=== PATIENT | female | born 1940 | race Caucasian/White ===

== ENCOUNTER 2017-01-01 11:44 | Inpatient (IN) | payer MEDICARE ==
[~2017-01-01] VITALS: Ht 154.9 cm; Wt 64.1 kg
[~2017-01-01 11:44] MED LIST: ALPR0.25 PO; AMLO10CA PO; ATOR20TA15 PO; GABA800T PO; IBUP-988 PO; LEVEMIR SQ; LISI40TA PO; METO25TA3 PO; PANT40TA3 PO; POTA1TAB4 PO; TRIA37.5 PO
[2017-01-02 06:29] VITALS: BP 145/67; PULSE 59; RESP 16; TEMP 98.7; O2SAT 97
[2017-01-02] MEDS ORDERED: METOPROLOL TARTRATE 25 MG TAB PO PRN (06:30)
[2017-01-02] MEDS ORDERED: SODIUM CHLOR 0.9% 1000 ML INJ 1,000 ML IV SCH (06:30)
[2017-01-02] MEDS ORDERED: POVIDONE IODINE 5% (ANTISEPSIS KIT) 4 APPLICATIONS EACH NARE PRN (06:30)
[2017-01-02] MEDS ORDERED: INSULIN HUMAN REGULAR 1,000 UNITS/10 ML VIAL SQ PRN (06:30)
[2017-01-02] MEDS ORDERED: CHLORHEXIDINE GLUCONATE 2 % 1 PACK (2 CLOTHS) TOPICAL PRN (06:30)
[2017-01-02] MEDS ORDERED: ceFAZolin 2 GM PREMIX 50 ML IV SCH (06:30)
[2017-01-02] MEDS ORDERED: SODIUM CHLORID 0.9% 500 ML IV PRN (06:30)
[2017-01-02] MEDS ORDERED: THROMBIN (TOPICAL) 5,000 UNIT VIAL ONE (07:55)
[2017-01-02] MEDS ORDERED: GELFOAM SIZE 100 ONE (07:55)
[2017-01-02] MEDS ORDERED: MIDAZOLAM HCL 2 MG/2 ML VIAL ONE (08:07)
[2017-01-02] MEDS ORDERED: ARTIFICIAL TEARS OPTH OINT 3.5 APPLIC/3.5 GM TUBO ONE (08:07)
[2017-01-02] MEDS ORDERED: FAMOTIDINE 20 MG/2 ML VIAL ONE (08:07)
[2017-01-02] MEDS ORDERED: fentaNYL CITRATE 250 MCG/5 ML AMP ONE (08:07)
[2017-01-02] MEDS ORDERED: ACETAMINOPHEN 1000 MG/100 ML VIAL IV ONE (08:44)
[2017-01-02] MEDS: BUPIVACAINE/EPINEPHRINE 0.5% PF 30 ML VIAL ONE ×2 (09:41→11:20)
--- NOTE | 2017-01-02 09:54 | EKG ---
Date Performed: 01/02/2017 Time Performed: 06:46:57 PTAGE: 76 years EKG: SINUS BRADYCARDIA LOW QRS VOLTAGE IN EXTREMITY LEADS NONSPECIFIC T-WAVE ABNORMALITY BORDERL INE ECG PREVIOUS TRACING : 09/14/2007 03.43 Compared to the previous tracing Twave abnormalities are le ss prominent DOCTOR: Obed Rose Interpretating Date/Time 01/02/2017 09:53:38
[2017-01-02] MEDS: VANCOMYCIN HCL 1000 MG VIAL ONE ×2 (10:32→11:23)
[2017-01-02] MEDS ORDERED: NEOSTIGMINE 3 MG/3 ML SYR IV ONE (12:00)
[2017-01-02] MEDS ORDERED: ONDANSETRON HCL 4 MG/2 ML VIAL IV PUSH ONE (12:00)
[2017-01-02] MEDS ORDERED: ePHEDrine/NS 25 MG/5 ML SYR IV ONE (12:00)
[2017-01-02] MEDS ORDERED: PROPOFOL 200 MG/20 ML AMP IV ONE (12:00)
[2017-01-02] MEDS ORDERED: NORMOSOL R INJ 2,000 ML IV ONE (12:00)
[2017-01-02] MEDS ORDERED: LACTATED RINGER'S 1000 ML INJ 1,000 ML IV ONE (12:00)
[2017-01-02] MEDS ORDERED: PHENYLEPH/NS 1000 MCG/10 ML SYR IV ONE (12:00)
[2017-01-02] MEDS: NS + KCL 20 MEQ INJ 1,000 ML IV SCH ×2 (12:11→20:00)
[2017-01-02] MEDS ORDERED: oxyCODONE/ACETAMINOPHEN 5 MG/325 MG TAB PO PRN (12:15)
[2017-01-02] MEDS ORDERED: GLUCAGON 1 MG/ML VIAL OTHER PRN (12:15)
[2017-01-02] MEDS ORDERED: diphenhydrAMINE HCL 50 MG/ML VIAL IV PRN (12:15)
[2017-01-02] MEDS ORDERED: MENTHOL LOZENGE BUCCAL PRN (12:15)
[2017-01-02] MEDS ORDERED: CYCLOBENZAPRINE HCL 10 MG TAB PO PRN (12:15)
[2017-01-02] MEDS ORDERED: ALUMINUM/MAGNESIUM/SIMETH 30 ML CUP PO PRN (12:15)
[2017-01-02] MEDS ORDERED: POTASSIUM CHLOR 20 MEQ PREMIX 100 ML IV PRN (12:15)
[2017-01-02] MEDS ORDERED: NALOXONE HCL 0.4 MG/ML AMP IV PRN (12:15)
[2017-01-02] MEDS ORDERED: DO NOT ADM ANY ANTICOAGULANT DRUGS PRN (12:15)
[2017-01-02] MEDS ORDERED: ACETAMINOPHEN 325 MG TAB PO PRN (12:15)
[2017-01-02] MEDS ORDERED: ALPRAZolam 0.25 MG TAB PO PRN (12:15)
[2017-01-02] MEDS ORDERED: MORPHINE SULFATE 30 MG/30 ML PCA IV SCH (12:15)
[2017-01-02] MEDS ORDERED: MAGNESIUM HYDROXIDE SUSP 30 ML CUP PO PRN (12:15)
[2017-01-02] MEDS ORDERED: PROCHLORPERAZINE INJ 10 MG/2 ML VIAL IV PUSH PRN (12:15)
[2017-01-02] MEDS ORDERED: CALCIUM GLUCONATE INJ 1 GM in SODIUM CHLORIDE 0.9% INJ 100 ML IV PRN (12:15)
[2017-01-02] MEDS ORDERED: RESP: ALBUTEROL 2.5 MG/3 ML NEB (PRN) NEB (12:15)
[2017-01-02] MEDS ORDERED: MAGNESIUM SULFATE INJ 2 GM in SODIUM CHLORIDE 0.9% INJ 100 ML IV PRN (12:15)
[2017-01-02] MEDS ORDERED: ONDANSETRON HCL 4 MG/2 ML VIAL IV PRN (12:15)
[2017-01-02] MEDS ORDERED: DEXTROSE 50% IN WATER 50 ML VIAL(D50) IV PUSH PRN (12:15)
[2017-01-02] MEDS ORDERED: ZOLPIDEM TARTRATE 5 MG TAB PO PRN (12:15)
[2017-01-02] MEDS ORDERED: SODIUM CHLORIDE 0.9% FLUSH 10 ML FLUSH IV FLUSH PRN (12:15)
--- NOTE | 2017-01-02 12:27 | PD.OP ---
MD Gerber Rodriguez MD Surya Rao, MD Operative Report Date of Surgery: Jan 02, 2017 Preoperative Diagnosis: Intractable low back pain with left L5 radiculopathy; left L4-5 facet arthropathy with synovial cyst; L5-S1 severe degenerative disc disease with facet arthropathy and foraminal stenosis Postoperative Diagnosis: Same Procedure: L5-S1 transforaminal interbody fusion; L4-5 laminectomy with medial facetectomy and synovial cyst resection and L5-S1 decompressive laminectomy/foraminotomy; L5 -S1 pedicle screw fixation; L5-S1 interbody cage placement; microsurgical technique Anesthesia: Gen. endotracheal by Shraddha Hodges Surgeon: Paolo Ugalde M.D. Medical Certification Specialist(s): April Parsons Operation and Findings: Following initiation of general endotracheal anesthesia, the patient had a Starr catheter placed along with sequential compression devices. A gram of vancomycin was administered intravenously and she was turned in a prone position on a Russel frame, on a Delfino table, and all pressure points adequately padded. The lumbosacral region was then prepped with Chloraprep and sterilely draped with Ioban along the usual sterile draping. A midline skin incision was then made extending from the L4-S1 levels after infiltrating the skin with 0.5% Marcaine with epinephrine solution extending down through the fascia. The muscle fibers were split using avascular fatty plane and detached from the underlying left side lamina, facets, transverse process and a self- retaining retractor used for exposure. Intraoperative fluoroscopy was also used for level of confirmation along with microscope magnification for further dissection. There was significant facet and ligamentum flavum hypertrophy noted at the L4-5 and L5-S1 levels. Left L4-5 medial facet and the lamina resected with a drill bit and there was a thickened lateral recess stenosis from hypertrophied ligamentum flavum and facet as well as a synovial cyst which mostly had the solid yellowish material and into the dura which was peeled off. Subsequently at the L5-S1 level a left hemilaminotomy and facetectomy undertaken with a drill bit and Kerrisons. There was significant disc height collapse along with disc protrusion also leading to the foraminal stenosis. Epidural hemostasis was achieved with bipolar cautery and Gelfoam with thrombin. Subsequently entered into the disc space at the L5-S1 level with a # 15 blade and scar were used for discectomy. I noted the couple millimeter area on the lateral aspect of thecal sac on the S1 level of spinal fluid leakage. This was primarily repaired with a 5-0 Prolene running lock stitch in a watertight fashion and reinforced with DuraSeal. No subsequent CSF leak was noted with Valsalva maneuvers. I then placed PEEK cage packed with local autograft bone and more local autograft bone was packed adjacent to the cage in interspace for added interbody fusion. With placement of the cage, I was able to distract the interspace and opened up the foramen further bilaterally. Subsequently in order to facilitate the fusion and provide stabilization, pedicle screw fixation was undertaken using [place] spine screws on entry point at the left L5 and S1 levels at the junction of the transverse process and facet for the L5 level and sacral ala for the S1 level. Subsequently using AP and lateral fluoroscopy tap and screw placement. The screws were then connected with a shilpi and locked in place with caps. The construct appeared very secure at this point. The area was then copiously irrigated with Vancomycin solution and powder. The retractors were removed and the bipolar cautery used for hemostasis. The muscle fascia was then approximated using 2-0 Vicryl interrupted stitches and then 3-0 Vicryl subcuticular stitches also placed in interrupted fashion. The final skin closure was completed with Mastisol and Steri-Strips. A sterile dressing was then applied. The patient then turned in supine position, extubated and taken to recovery room. There were no intraoperative complications. All sponge and needle counts were correct at the end of procedure. Estimated blood loss about 100 ml. Paolo Ugalde MD Jan 02, 2017 12:27
[2017-01-02] MEDS: GABAPENTIN 400 MG CAP PO SCH ×2 (13:00→16:20)
[2017-01-02 13:36] LABS: AUTOMATED NEUTROPHIL # 6.6 TH/MM3 (1.8-7.7); BASOPHIL % 0.5 % (0.0-2.0); EOSINOPHIL % 0.5 % (0.0-4.0); HEMATOCRIT 31.4 % (35.0-46.0); HEMO FLAGS DIFF FINAL; LYMPH % 7.5 % (9.0-44.0); LYMPHOCYTE # 0.6 TH/MM3 (1.0-4.8); MEAN CELL VOLUME 94.3 FL (80.0-100.0); MEAN CORPUSCULAR HEMOGLOBIN 31.5 PG (27.0-34.0); MEAN CORPUSCULAR HGB CONC 33.4 % (32.0-36.0); MONO % 2.5 % (0.0-8.0); PLATELET COUNT 157 TH/MM3 (150-450); RED BLOOD COUNT 3.33 MIL/MM3 (4.00-5.30); RED CELL DISTRIBUTION WIDTH 13.2 % (11.6-17.2); WHITE BLOOD COUNT 7.4 TH/MM3 (4.0-11.0)
[2017-01-02] MEDS: PCA - TOTAL MG MORPHINE DELIVERED PER SHIFT SCH ×2 (14:00→21:13)
[2017-01-02 14:24] LABS: BICARBONATE 25.3 MEQ/L (21.0-32.0); MAGNESIUM 2.2 MG/DL (1.5-2.5); POTASSIUM 3.8 MEQ/L (3.5-5.1)
[2017-01-02] MEDS ORDERED: AMLO10TA2 PO (14:26)
[2017-01-02 14:45] VITALS: BP 111/48; PULSE 63; RESP 20; TEMP 95.7; O2SAT 98
--- NOTE | 2017-01-02 14:52 | PD.CONS ---
HPI Service [facility] Hospitalists Consult Requested By Dr. Paolo Ugalde Reason for Consult Medical Management Primary Care Physician Dr. Mariano Carrillo Diagnoses: History of Present Illness Mrs. Tyson is a pleasant 76 y/o WF with HTN, hyperlipidemia, CAD, GERD, and intractable low back pain with left L5 radiculopathy/left L4-5 facet arthropathy /L5-S1 severe degenerative disc disease. [place] [facility] [place] L5 -S1 transforaminal interbody fusion/laminectomy with medial facetectomy and L5- S1 decompressive laminectomy/foraminotomy with Dr. Ugalde. [facility] Hospitalist team was consulted to help manage the pts chronic medical issues. Pt is seen post- operatively in the PACU and is without any specific complaints. 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 She reports that her pain is controlled at the time of our examination. Denies any chest pain, SOB, nausea /vomiting, dizziness, lightheadedness or abd pain. BP is low normal in PACU. Medications have been reviewed in outpt records as well. Review of Systems Constitutional: DENIES: Fever, Chills Respiratory: DENIES: Cough, Shortness of breath Cardiovascular: DENIES: Chest pain Gastrointestinal: DENIES: Abdominal pain, Nausea, Vomiting Musculoskeletal: COMPLAINS OF: Back pain Integumentary: DENIES: Rash Neurologic: DENIES: Headache Psychiatric: DENIES: Confusion Past Family Social History Past Medical History CAD HTN Carotid artery stenosis CKD, stage 4 Diabetes mellitus Hyperlipidemia GERD Hypokalemia IBS Lumbar spondylosis/radiculopathy Migraine Headaches Past Surgical History Cholecystectomy Surgical uterine suspension PTCA with MATEO placement to proximal circumflex in 2010 Reported Medications -Advil (Ibuprofen) 200 Mg Tab 200 Mg PO ONCE -Gabapentin 800 Mg PO TID -Levemir Inj 15 Units SQ DAILY -Triamterene-Hydrochlorothiazide 37.5-25 Mg PO DAILY -Pantoprazole 40 Mg PO DAILY -Metoprolol Tartrate 25 Mg PO DAILY -Lisinopril 40 Mg PO DAILY -Atorvastatin 20 Mg PO HS -Amlodipine 10 Mg PO DAILY --Alprazolam 0.25 Mg PO Q8H PRN (?1mg po HS PRN) --K-Tab 20 Meq PO BID Allergies: Coded Allergies: Demerol (Verified Allergy, Severe, vomiting, 01/02/17) Lortab (Verified Allergy, Severe, severe nausea VOMITING, 01/02/17) Clonidine (Verified Allergy, Unknown, 01/02/17) Darvocet-N 100 (Verified Adverse Reaction, Intermediate, vomiting, 01/02/17) Family History Noncontributory Social History Denies any tobacco, alcohol or illicit drug use Physical Exam Vital Signs Vital Signs Date Time Temp Pulse Resp B/P Pulse Ox O2 Delivery O2 Flow Rate FiO2 01/02/17 13:30 56 16 117/54 99 Nasal Cannula 2 01/02/17 13:15 55 16 118/50 98 Nasal Cannula 2 01/02/17 13:00 57 16 113/53 98 Nasal Cannula 2 01/02/17 12:45 56 16 120/49 99 Nasal Cannula 2 01/02/17 12:30 56 16 122/55 99 Nasal Cannula 2 01/02/17 12:15 61 16 125/57 98 Nasal Cannula 2 01/02/17 12:00 66 16 123/63 99 Nasal Cannula 2 01/02/17 11:51 97.4 75 16 128/46 99 Nasal Cannula 3 01/02/17 06:29 98.7 59 16 145/67 97 Physical Exam GENERAL: This is a well-nourished, well-developed patient, in no apparent distress. HEENT: Atraumatic. Normocephalic. No temporal or scalp tenderness. No scleral icterus. Airway patent. NECK: Trachea midline, supple, nontender. CARDIO: Regular. RESP: CTA bilaterally. No wheezes, rales, or rhonchi. ABD: +BS, soft, non-tender, nondistended. EXT: Extremities without clubbing, cyanosis, or edema. SCDs in place NEURO: Awake and alert. Motor and sensory grossly within normal limits. Normal speech. Laboratory Laboratory Tests Test 01/02/17 01/02/17 06:40 13:15 Blood Type A POSITIVE Antibody Screen NEGATIVE Blood Bank Comment White Blood Count 7.4 Red Blood Count 3.33 Hemoglobin 10.5 Hematocrit 31.4 Mean Corpuscular Volume 94.3 Mean Corpuscular Hemoglobin 31.5 Mean Corpuscular Hemoglobin 33.4 Concent Red Cell Distribution Width 13.2 Platelet Count 157 Mean Platelet Volume 8.5 Neutrophils (%) (Auto) 89.0 Lymphocytes (%) (Auto) 7.5 Monocytes (%) (Auto) 2.5 Eosinophils (%) (Auto) 0.5 Basophils (%) (Auto) 0.5 Neutrophils # (Auto) 6.6 Lymphocytes # (Auto) 0.6 Monocytes # (Auto) 0.2 Eosinophils # (Auto) 0.0 Basophils # (Auto) 0.0 CBC Comment DIFF FINAL Differential Comment Result Diagram: 01/02/17 1315 Assessment and Plan Problem List: (1) Lumbar degenerative disc disease Status: Chronic Plan: - Pt has a hx of intractable low back pain with left L5 radiculopathy/left L4-5 facet arthropathy/L5-S1 severe degenerative disc disease. - [place] [facility] [place] for L5-S1 transforaminal interbody fusion/ laminectomy with medial facetectomy and L5-S1 decompressive laminectomy/foraminotomy with Dr. Ugalde. - Post-op pain control per Neurosurgery - PT daily - IS - Constipation precautions - DVT prophylaxis (2) Lumbar foraminal stenosis Status: Chronic Plan: - See above (3) Lumbar disc prolapse with compression radiculopathy Status: Chronic Plan: - See above. (4) HTN (hypertension) Status: Chronic Plan: - Pt home BP regimen includes: -Triamterene-Hydrochlorothiazide 37.5-25 Mg PO DAILY -Metoprolol Tartrate 25 Mg PO DAILY -Lisinopril 40 Mg PO DAILY -Amlodipine 10 Mg PO DAILY - Home meds have been resumed but with parameters to hold for systolic BP less than 120 on Triamterene-HCTZ, Lisinopril, and Amlodipine and hold Metoprolol for systolic less than 110. - Monitor (5) Hyperlipidemia Status: Chronic Plan: - Home med continued (6) GERD (gastroesophageal reflux disease) Status: Chronic (7) CAD (coronary artery disease) Status: Chronic Assessment and Plan Patient examined. Assessment and plan formulated with Nette Baca PA-C. Teresa agree with the above. L5/S1 lami/fusion for radiculopathy left leg. htn/dm...cont bp meds and dm meds as tolerated. seen in PACU and doing great. Nette Baca Jan 02, 2017 14:52 Chinedu Gold MD Jan 02, 2017 20:32
[2017-01-02] MEDS: INSULIN NovoLIN REGULAR SUPPLEMENTAL SCALE SQ SCH ×2 (16:20→21:13)
[2017-01-02 20:00] VITALS: BP 115/60; PULSE 74; RESP 18; TEMP 96.7; O2SAT 98
[2017-01-02] MEDS: DOCUSATE SODIUM 100 MG CAP PO SCH (20:00)
[2017-01-02] MEDS: ATORVASTATIN 20 MG TAB PO SCH (20:00)
[2017-01-02] MEDS: SODIUM CHLORIDE 0.9% FLUSH 10 ML FLUSH IV FLUSH SCH (20:01)
[2017-01-03] VITALS (8 sets, daily range): BP systolic 115–175; BP diastolic 56–74; PULSE 62–80; RESP 16–20; TEMP 96.5–99.1; O2SAT 92–97
[2017-01-03] MEDS: PCA - TOTAL MG MORPHINE DELIVERED PER SHIFT SCH ×3 (05:33→22:00)
[2017-01-03 05:38] LABS: MAGNESIUM 2.1 MG/DL (1.5-2.5); POTASSIUM 4.6 MEQ/L (3.5-5.1)
[2017-01-03] MEDS: INSULIN NovoLIN REGULAR SUPPLEMENTAL SCALE SQ SCH ×4 (06:11→20:33)
[2017-01-03] MEDS: POLYETHYLENE GLYCOL 17 GM PKG PO SCH (07:37)
[2017-01-03] MEDS: POTASSIUM CHLORIDE 20 MEQ CONTROLLED RELEASE TAB PO SCH (07:38)
[2017-01-03] MEDS: TRIAMTERENE/HCTZ 37.5 MG/25 MG TAB PO SCH (07:38)
[2017-01-03] MEDS: METOPROLOL TARTRATE 25 MG TAB PO SCH (07:38)
[2017-01-03] MEDS: LISINOPRIL 20 MG TAB PO SCH (07:39)
[2017-01-03] MEDS: DOCUSATE SODIUM 100 MG CAP PO SCH ×2 (07:39→20:32)
[2017-01-03] MEDS: PANTOPRAZOLE SOD 40 MG DELAYED RELEASE TAB PO SCH (07:39)
[2017-01-03] MEDS: GABAPENTIN 400 MG CAP PO SCH (07:40)
[2017-01-03] MEDS: SODIUM CHLORIDE 0.9% FLUSH 10 ML FLUSH IV FLUSH SCH ×2 (07:47→20:32)
--- NOTE | 2017-01-03 08:51 | HHI.NSPN ---
(Du Sylvester) History Chief Complaint: Incisional back pain. (Du Sylvester) Interval History 01/03/17: Pt underwent a L4/L5 laminectomy with medial facetectomy with synovial cyst resection with L5/S1 decompressive laminectomy with interbody fusion and pedicle screw fixation on 01/02/17. She complains of incisional back pain. No radiculopathy or paresthesias in LEs. She is ambulating short distances. 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 (Du Sylvester) Review of Systems General: Negative for: fever, chills, insomnia Respiratory: Negative for: shortness of breath, cough, sputum Cardiovascular: Negative for: chest pain Gastrointestinal: Negative for: nausea, vomitting, diarrhea, constipation ( Du Sylvester) Exam Results Vital Signs Date Time Temp Pulse Resp B/P Pulse Ox O2 Delivery O2 Flow Rate FiO2 01/03/17 07:49 Room Air 01/03/17 05:33 16 01/03/17 04:00 97.8 73 117/59 95 01/03/17 02:03 21 01/02/17 19:09 2.00 Intake and Output 01/02/17 01/02/17 01/03/17 08:00 16:00 00:00 Intake Total 1600 ml 954 ml Output Total 880 ml 300 ml Balance 720 ml 654 ml (Du Sylvester) Physical Examination Resp: CTA bilaterally Heart: NSR no murmurs Abd: Soft positive bs Skin: No cyanosis or erythema Muscle: Moves LEs with good strength Neuro: Pt awake and alert. Follows commands well. speech clear and appropriate. (Du Sylvester) Lab, Micro, Other Results Laboratory Tests Test 01/02/17 01/03/17 13:15 04:08 White Blood Count 7.4 TH/MM3 Red Blood Count 3.33 MIL/MM3 Hemoglobin 10.5 GM/DL Hematocrit 31.4 % Mean Corpuscular Volume 94.3 FL Mean Corpuscular Hemoglobin 31.5 PG Mean Corpuscular Hemoglobin 33.4 % Concent Red Cell Distribution Width 13.2 % Platelet Count 157 TH/MM3 Mean Platelet Volume 8.5 FL Neutrophils (%) (Auto) 89.0 % Lymphocytes (%) (Auto) 7.5 % Monocytes (%) (Auto) 2.5 % Eosinophils (%) (Auto) 0.5 % Basophils (%) (Auto) 0.5 % Neutrophils # (Auto) 6.6 TH/MM3 Lymphocytes # (Auto) 0.6 TH/MM3 Monocytes # (Auto) 0.2 TH/MM3 Eosinophils # (Auto) 0.0 TH/MM3 Basophils # (Auto) 0.0 TH/MM3 CBC Comment DIFF FINAL Differential Comment Sodium Level 141 MEQ/L 142 MEQ/L Potassium Level 3.8 MEQ/L 4.6 MEQ/L Chloride Level 107 MEQ/L 109 MEQ/L Carbon Dioxide Level 25.3 MEQ/L 25.0 MEQ/L Anion Gap 9 MEQ/L 8 MEQ/L Blood Urea Nitrogen 27 MG/DL 24 MG/DL Creatinine 1.34 MG/DL 1.34 MG/DL Estimat Glomerular Filtration 39 ML/MIN 39 ML/MIN Rate Random Glucose 150 MG/DL 155 MG/DL Calcium Level 8.7 MG/DL 8.6 MG/DL Magnesium Level 2.2 MG/DL 2.1 MG/DL 01/02/17 01/02/17 01/03/17 15:00 23:00 07:00 Intake Total 1600 ml 954 ml 873 ml Output Total 880 ml 300 ml 600 ml Balance 720 ml 654 ml 273 ml Intake Oral 240 ml 240 ml IV Total 714 ml 633 ml Other 1600 ml Output Urine Total 800 ml 300 ml 600 ml Estimated Blood Loss 80 ml # Bowel Movements 0 0 (Du Sylvester) Medical Decision Making Impression and Plan A: 76 y/o FM s/p L4/L5 laminectomy with medial facetectomy with synovial cyst resection with L5/S1 decompression with interbody fusion with cage and pedicle screw fixation. P: Continue with PT Continue with pain control. D/C SOAPING MACHINE BACK TENDER tomorrow am. Rehab efforts (Du Sylvester) Attending Statement The exam, history, and the medical decision-making described in the above note were completed with the assistance of the mid-level provider. I reviewed and agree with the findings presented. I attest that I had a [id number] encounter with the patient on the same day, and personally performed and documented my assessment and findings in the medical record. (Paolo Ugalde MD) Du Sylvester Jan 03, 2017 08:51 Paolo Ugalde MD Jan 03, 2017 13:38
[2017-01-03] MEDS ORDERED: LISINOPRIL 20 MG TAB PO SCH (09:00)
[2017-01-03] MEDS ORDERED: NON-FORMULARY DRUG (Amlodipine-Benazepril 1 CAP) PO SCH (09:00)
[2017-01-03] MEDS ORDERED: PERC10TA27 PO (09:19)
[2017-01-03] MEDS: NS + KCL 20 MEQ INJ 1,000 ML IV SCH (12:33)
[2017-01-03] MEDS: oxyCODONE/ACETAMINOPHEN 5 MG/325 MG TAB PO PRN ×2 (12:39→16:51)
--- NOTE | 2017-01-03 13:17 | RADRPT ---
EXAM DATE/TIME: 01/02/2017 09:02 [place] COMPARISON: No previous studies available for comparison. INDICATIONS : L5-S1 lumbar fusion. Lower back pain. MEDICAL HISTORY : None. SURGICAL HISTORY : None. ENCOUNTER: Initial ACUITY: 1 day PAIN SCORE: Non-responsive. LOCATION: lower back FINDINGS: Patient is status-post transpedicular fusion from the left at L5-S1. Alignment is anatomic. CONCLUSION: Anatomic alignment Yovanny Cardona MD FACR on January 03, 2017 at 13:09 Board Certified Radiologist. This report was verified electronically.
[2017-01-03] MEDS: GABAPENTIN 300 MG CAP PO SCH (20:32)
[2017-01-03] MEDS: ATORVASTATIN 20 MG TAB PO SCH (20:32)
[2017-01-04] VITALS: BP 115/57; PULSE 71; RESP 16; TEMP 97.4; O2SAT 94
[2017-01-04 04:00] VITALS: BP 141/65; PULSE 73; RESP 20; TEMP 98.2; O2SAT 93
[2017-01-04] MEDS: PCA - TOTAL MG MORPHINE DELIVERED PER SHIFT SCH ×3 (06:00→22:00)
[2017-01-04] MEDS: INSULIN NovoLIN REGULAR SUPPLEMENTAL SCALE SQ SCH ×4 (07:00→21:00)
[2017-01-04 07:48] VITALS: BP 174/77; PULSE 91; RESP 17; TEMP 98.9; O2SAT 96
[2017-01-04] MEDS: SODIUM CHLORIDE 0.9% FLUSH 10 ML FLUSH IV FLUSH SCH ×2 (09:00→22:07)
[2017-01-04] MEDS: POTASSIUM CHLORIDE 20 MEQ CONTROLLED RELEASE TAB PO SCH (09:00)
[2017-01-04] MEDS: POLYETHYLENE GLYCOL 17 GM PKG PO SCH (09:00)
[2017-01-04] MEDS: LISINOPRIL 20 MG TAB PO SCH (10:51)
[2017-01-04] MEDS: METOPROLOL TARTRATE 25 MG TAB PO SCH (10:52)
[2017-01-04] MEDS: PANTOPRAZOLE SOD 40 MG DELAYED RELEASE TAB PO SCH (10:52)
[2017-01-04] MEDS: TRIAMTERENE/HCTZ 37.5 MG/25 MG TAB PO SCH (10:52)
[2017-01-04] MEDS: GABAPENTIN 300 MG CAP PO SCH ×2 (10:52→22:01)
[2017-01-04] MEDS: DOCUSATE SODIUM 100 MG CAP PO SCH ×2 (10:53→22:00)
[2017-01-04 11:34] VITALS: BP 142/61; PULSE 84; RESP 17; TEMP 97.7; O2SAT 93
[2017-01-04 15:50] VITALS: BP 138/68; PULSE 81; RESP 17; TEMP 98.9; O2SAT 95
[2017-01-04 20:30] VITALS: BP 145/63; PULSE 69; RESP 17; TEMP 97.1; O2SAT 95
[2017-01-04] MEDS: ATORVASTATIN 20 MG TAB PO SCH (22:01)
--- NOTE | 2017-01-04 23:59 | HHI.NSPN ---
History Chief Complaint: Incisional back pain. Interval History 76-year-old female status post PLIF Exam Results Vital Signs Date Time Temp Pulse Resp B/P Pulse Ox O2 Delivery O2 Flow Rate FiO2 01/04/17 20:30 97.1 69 17 145/63 95 01/03/17 10:02 21 01/03/17 07:49 Room Air 01/02/17 19:09 2.00 Intake and Output 01/03/17 01/03/17 01/04/17 08:00 16:00 00:00 Intake Total 873 ml 718 ml 606 ml Output Total 600 ml Balance 273 ml 718 ml 606 ml Physical Examination Resp: CTA bilaterally Heart: NSR no murmurs Abd: Soft positive bs Skin: No cyanosis or erythema. Dressing dry and intact Muscle: Moves LEs with good strength Neuro: Pt awake and alert. Follows commands well. speech clear and appropriate. Sensory intact light touch all extremities Medical Decision Making Impression and Plan Impression: 1. Doing well following TLIF. Stable neurologic exam Plan: Discussed with patient She is mobilizing well out of bed. Pain control with oral medications Tolerating diet well Anticipate discharge home 01/05/17 Hayder Aaron MD Jan 04, 2017 23:59
[2017-01-05] VITALS: BP 129/65; PULSE 73; RESP 16; TEMP 96.6; O2SAT 97
[2017-01-05] MEDS: oxyCODONE/ACETAMINOPHEN 5 MG/325 MG TAB PO PRN ×2 (03:01→12:02)
[2017-01-05 04:00] VITALS: BP 116/70; PULSE 70; RESP 16; TEMP 97.8; O2SAT 96
[2017-01-05] MEDS: INSULIN NovoLIN REGULAR SUPPLEMENTAL SCALE SQ SCH ×2 (07:00→11:00)
[2017-01-05 08:00] VITALS: BP 141/66; PULSE 72; RESP 17; TEMP 97.7; O2SAT 94
[2017-01-05] MEDS: DOCUSATE SODIUM 100 MG CAP PO SCH (08:30)
[2017-01-05] MEDS: METOPROLOL TARTRATE 25 MG TAB PO SCH (08:30)
[2017-01-05] MEDS: GABAPENTIN 300 MG CAP PO SCH (08:30)
[2017-01-05] MEDS: PANTOPRAZOLE SOD 40 MG DELAYED RELEASE TAB PO SCH (08:30)
[2017-01-05] MEDS: POTASSIUM CHLORIDE 20 MEQ CONTROLLED RELEASE TAB PO SCH (08:30)
[2017-01-05] MEDS: LISINOPRIL 20 MG TAB PO SCH (08:30)
[2017-01-05] MEDS: POLYETHYLENE GLYCOL 17 GM PKG PO SCH (08:30)
[2017-01-05] MEDS: SODIUM CHLORIDE 0.9% FLUSH 10 ML FLUSH IV FLUSH SCH (08:31)
[2017-01-05] MEDS: TRIAMTERENE/HCTZ 37.5 MG/25 MG TAB PO SCH (08:31)
--- NOTE | 2017-01-05 09:51 | HHI.DCPOC ---
Discharge Care Plan Diagnosis: (1) Synovial cyst of lumbar facet joint (2) Lumbar disc prolapse with compression radiculopathy Your Health Problems Are: Difficulty with ADL Incision/Drains Exercise Tolerance Chronic Pain Goals to Promote Your Health * To prevent worsening of your condition and complications * To maintain your health at the optimal level Directions to Meet Your Goals Take your medications as prescribed Follow your dietary instruction Follow activity as directed Keep your appointments as scheduled Take your immunizations and boosters as scheduled If your symptoms worsen call your PCP, if no PCP go to Urgent Care Center or Emergency Room Smoking is Dangerous to Your Health. Avoid second hand smoke Call the 24-hour hour crisis hotline for domestic abuse at Hayder Aaron MD Jan 05, 2017 09:51
--- NOTE | 2017-01-05 18:58 | HHI.NSPN ---
History Chief Complaint: Incisional back pain. Interval History 76-year-old female status post PLIF Exam Results Vital Signs Date Time Temp Pulse Resp B/P Pulse Ox O2 Delivery O2 Flow Rate FiO2 01/05/17 08:00 97.7 72 17 141/66 94 01/03/17 10:02 21 01/03/17 07:49 Room Air 01/02/17 19:09 2.00 Intake and Output 01/04/17 01/04/17 01/05/17 08:00 16:00 00:00 Intake Total 511 ml 720 ml 120 ml Balance 511 ml 720 ml 120 ml Physical Examination Respirations clear and regular Ambulating without assistance without difficulty Dressing dry and intact Awake and alert Medical Decision Making Impression and Plan Impression: 1. Doing well following TLIF. Stable neurologic exam Plan: Discussed with patient She is mobilizing well out of bed. Pain control with oral medications Tolerating diet well discharge home 01/05/17 Instructions discussed with patient and Hayder Aaron MD Jan 05, 2017 18:58
--- NOTE | 2017-02-21 16:08 | HHI.DS ---
Discharge Summary Admission Date Jan 02, 2017 at 05:47 Discharge Date: Jan 05, 2017 Admitting Diagnosis (1) Lumbar degenerative disc disease Diagnosis: Principal ICD Code: M51.36 (2) Lumbar foraminal stenosis Diagnosis: Principal ICD Code: M99.83 (3) Lumbar disc prolapse with compression radiculopathy Diagnosis: Principal ICD Code: M51.16 (4) HTN (hypertension) Diagnosis: Secondary ICD Code: I10 (5) Hyperlipidemia Diagnosis: Secondary ICD Code: E78.5 (6) GERD (gastroesophageal reflux disease) Diagnosis: Secondary ICD Code: K21.9 (7) CAD (coronary artery disease) Diagnosis: Secondary ICD Code: I25.10 Procedures L4/L5 laminectomy with medial facetectomy and synovial cyst resection with L5/ S1 decompressive laminectomy and foraminotomy with transforaminal interbody fusion and cage and pedicle screw fixation by Paolo Ugalde MD on 01/02/17. Brief History This is a 76-year-old female who presented to us for evaluation of chronic low back pain which she's had for over 10 years and superior left buttock pain radiating down the posterior left leg to the ankle. Her symptoms were exacerbated in the summer of 2015. She has paresthesias on the plantar aspect of the left foot. She denies any right lower extremity symptoms. Sitting in a recliner is the best position for her and walking and laying down is the worst positions. She relates subjective weakness in her left leg and she states it svitlana and she has fallen but she doesn't use any assistive device. She denies any bowel or bladder incontinence. She had physical therapy several years ago and relates that this did not help her. She has been to pain management had 3 epidural steroid injections which did not help. She is unable to ambulate more than 20-30 feet because of the symptoms are exacerbated. She cannot live with her current level of discomfort and activity restrictions and she is requesting that we proceed with surgical intervention. Imaging MRI of the lumbar spine from 12/26/16 reveals severe L5/S1 degenerative disc disease with disc height collapse along with facet arthropathy and endplate changes with foraminal stenosis left more than right. She also has a L4/L5 facet arthropathy with a left synovial cyst and lateral recess and left foraminal stenosis. Hospital Course Patient underwent the above-noted procedure performed by Dr. Ugalde. There was no intraoperative complications. Postoperatively patient was admitted to the medical/surgical floor. PT was consult in her activity status was increased. 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 Patient was discharged home in stable condition. Pt Condition on Discharge: Stable Discharge Disposition: Discharge Home Discharge Instructions DIET: Follow Instructions for: As Tolerated, No Restrictions ACTIVITIES You can perform: Shower Only-No Bath Activities to Avoid: Lifting/Bending, Strenuous Activity, Bathing, Driving New Medications: Oxycodone-Acetaminophen (Percocet) 10-325 mg Tab 1 TAB PO Q4H PRN PAIN #60 Ref 0 TAB Continued Medications: Alprazolam (Alprazolam) 0.25 Mg Tab 0.25 MG PO Q8H PRN ANXIETY Ref 0 TAB Amlodipine (Amlodipine) 10 Mg Tab 10 MG PO DAILY Blood Pressure Management #30 Ref 0 TAB Atorvastatin (Atorvastatin) 20 Mg Tab 20 MG PO HS Cholesterol Management #30 Ref 0 TAB Gabapentin (Gabapentin) 800 Mg Tab 400 MG PO TID #90 Ref 0 TAB Insulin Detemir Inj (Levemir Inj) 1,000 unit/ 10 ML Vial 15 UNITS SQ DAILY Do not mix with any other Insulin. Blood Sugar Management Ref 0 VIAL Lisinopril (Lisinopril) 40 Mg Tab 40 MG PO DAILY Blood Pressure Management #30 Ref 0 TAB Metoprolol Tartrate (Metoprolol Tartrate) 25 Mg Tab 25 MG PO DAILY #30 Ref 0 TAB Pantoprazole (Pantoprazole) 40 Mg Tab 40 MG PO DAILY Reflux #30 Ref 0 TAB Potassium Chloride ER (K-Tab) 20 Meq Tab 20 MEQ PO DAILY Electrolyte Replacement #30 Ref 0 TAB Triamterene-Hydrochlorothiazide (Triamterene-Hydrochlorothiazide) 37.5-25 Mg Tab 1 TAB PO DAILY #30 Ref 0 TAB Discontinued Medications: Ibuprofen (Advil) 200 Mg Tab 200 MG PO ONCE #1 Ref 0 TAB Du Sylvester February 21, 2017 16:08
== END 2017-01-05 12:36 | disposition home or self-care (01) | DRG 460 ==
LOC: HSDI 01-02 05:47 → N06B 01-02 14:41
PROVIDERS: ADMIT Neurological Surgery; ATTEND Neurological Surgery
PROC: 0ST40ZZ Resection of Lumbosacral Disc, Open Approach (ICD-10-PCS; 2017-01-02)
PROC: 01NB0ZZ Release Lumbar Nerve, Open Approach (ICD-10-PCS; 2017-01-02)
PROC: 0SG30AJ Fusion of Lumbosacral Joint with Interbody Fusion Device, Posterior Approach, Anterior Column, Open Approach (ICD-10-PCS; principal; 2017-01-02 08:44)
DX: M51.17 Intervertebral disc disorders with radiculopathy, lumbosacral region (principal); N18.4 Chronic kidney disease, stage 4 (severe); E78.5 Hyperlipidemia, unspecified; M47.26 Other spondylosis with radiculopathy, lumbar region; M47.816 Spondylosis without myelopathy or radiculopathy, lumbar region; M71.38 Other bursal cyst, other site; G89.18 Other acute postprocedural pain; I25.10 Atherosclerotic heart disease of native coronary artery without angina pectoris; K21.9 Gastro-esophageal reflux disease without esophagitis; I12.9 Hypertensive chronic kidney disease with stage 1 through stage 4 chronic kidney disease, or unspecified chronic kidney disease; E11.22 Type 2 diabetes mellitus with diabetic chronic kidney disease; G43.909 Migraine, unspecified, not intractable, without status migrainosus; Z95.5 Presence of coronary angioplasty implant and graft; Z79.4 Long term (current) use of insulin
CPT/HCPCS: 72100; 76000; 80048; 82948; 83735; 85025; 86850; 86900; 86901; 93005; 94150; C1713; J0131; J0690; J0780; J2250; J2270; J2370; J2405; J2710; J3010; J3370; J3480; J7120; L0627